=== PATIENT | male | born 1965 | race American Indian/Alaskan Native ===

== ENCOUNTER 2016-06-14 09:42 | Emergency (ER) | payer MEDICARE ==
--- NOTE | 2016-06-14 10:38 | Emergency Department Report ---
Stated Complaint: HIGH GLUCOSE LEVEL Time Seen by Provider: 06/14/16 10:34 - HPI History of Present Illness: Patient report elevated blood sugar this morning 388. He took 10 units of 70/30 , however glycemic level in the ED 401. He c/o headache - ROS Review of Systems: all other systems are unremarkable except for documentation in HPI - Exam Physical Exam: Gen: well developed and nourished, NAD Neuro: A&O times 3, GCS 15, no focal neuro deficits noted MSE screening note: Focused history and physical exam performed. Due to findings the following was ordered: glycemic and laboratory studies ordered ED Disposition for MSE Condition: Stable
[2016-06-14 11:01] LABS: Basophils % (Auto) 0.7 % (0.0-1.8); Eosinophils % (Auto) 1.7 % (0.0-4.3); Hematocrit 38.7 % (35.5-45.6); Hemoglobin 12.7 gm/dl (11.8-15.2); Mean Corpuscular HGB Conc 33 % (32-34); Mean Corpuscular Hemoglobin 28 pg (28-32); Mean Corpuscular Volume 85 fl (84-94); Platelet Count 263 K/mm3 (140-440); Red Blood Count 4.56 M/mm3 (3.65-5.03); Red Cell Distribution Width 15.6 % (13.2-15.2); White Blood Count 5.7 K/mm3 (4.5-11.0)
[2016-06-14 11:19] LABS: Alanine Aminotransferase 13 units/L (7-56); Albumin 4.3 g/dL (3.9-5); Albumin/Globulin Ratio 1.2 %; Alkaline Phosphatase 57 units/L (35-129); Anion Gap 17 mmol/L; B-Hydroxybutyrate 2.1 mg/dL (0.2-2.8); BUN/Creatinine Ratio 15.55; Bilirubin,Total 0.2 mg/dL (0.1-1.2); Blood Urea Nitrogen 14 mg/dL (9-20); Calcium 9.2 mg/dL (8.4-10.2); Carbon Dioxide 26 mmol/L (22-30); Chloride 95.4 mmol/L (98-107); Glucose 384 mg/dL (75-100); Potassium 4.7 mmol/L (3.6-5.0); Sodium 134 mmol/L (137-145)
[2016-06-14 12:21] LABS: Bilirubin,Urine NEG (Negative); Blood,Urine NEG (Negative); Ketones,Urine NEG (Negative); Leukocyte Esterase,Urine NEG (Negative); Mucus,Urine FEW /HPF; Nitrite,Urine NEG (Negative); Protein,Urine <15 mg/dL mg/dL (Negative); Urobilinogen,Urine < 2.0 mg/dL (<2.0)
[2016-06-14] MEDS ORDERED: NACL 0.9% 1000 ML 1,000 ML IV ONE (20:17)
[2016-06-14 23:40] VITALS: BP 156/91
--- NOTE | 2016-06-15 00:32 | Emergency Department Report ---
HPI - General Chief Complaint: Hyperglycemia Time Seen by Provider: 06/14/16 20:14 - HPI HPI: The patient is a 51-year-old male with a history of diabetes, who presents for evaluation of lightheadedness and elevated BS. The patient reports lightheadedness, on and off for the past 1 week, worsening over the past one day , exacerbated with standing and physical activity, severe when exacerbated, and improved with rest. The patient denies fever, headache, neck pain, paresthesias , focal motor weakness, blurry vision, ear pain, tinnitus, chest pain, hemoptysis, dyspnea, abdominal pain, confusion or altered mental status, or recent URI or diarrhea. ED Past Medical Hx - Past Medical History Previous Medical History?: Yes Hx Hypertension: Yes Hx Diabetes: Yes Hx Psychiatric Treatment: (shizophrenia, bipolar, depression, acohol and drug use) Additional medical history: ENLARGED PROSTATE - Surgical History Past Surgical History?: No - Social History Smoking Status: Current Every Day Smoker Substance Use Type: None, Cocaine, Marijuana, Prescribed - Medications Home Medications: Home Medications Medication Instructions Recorded Confirmed Last Taken Type Insulin NPH/Regular [NovoLIN 70/30] 10 unit SQ BID 02/23/16 02/23/16 Unknown History Acetaminophen [Acetaminophen TAB] 650 mg PO Q4H PRN #30 tablet 02/25/16 Unknown Rx Pantoprazole [Protonix] 40 mg PO QDAY #30 tablet 02/25/16 Unknown Rx Thiamine [Vitamin B-1] 100 mg PO QDAY #30 tablet 02/25/16 Unknown Rx ED Review of Systems ROS: Stated complaint: HIGH GLUCOSE LEVEL Other details as noted in HPI Constitutional: denies: fever; reports lightheadedness ENT: denies: throat or neck pain Respiratory: denies: cough, shortness of breath Cardiovascular: denies: chest pain Endocrine: denies unexplained weight loss or gain Gastrointestinal: denies: abdominal pain, nausea Genitourinary: denies: dysuria Musculoskeletal: denies: leg swelling Skin: denies: rash Neurological: denies: headache Hematological/Lymphatic: denies: easy bleeding or easy bruising Psych: denies sadness or hopelessness Comment: All other systems reviewed and negative Physical Exam - Physical Exam Vital Signs: Vital Signs 06/14/16 06/14/16 10:38 23:39 Temperature 97.6 F Pulse Rate 81 Respiratory 16 Rate Blood Pressure 144/89 Blood Pressure 156/91 [Left] O2 Sat by Pulse 100 Oximetry Physical Exam: General: well-nourished, well-developed, no acute distress Head: Normocephalic, atraumatic Eyes: normal sclera, EOMI, PERRL, no nystagmus ENT: Mucous membranes are pale and dry Neck: No neck stiffness, no cervical adenopathy Respiratory: Breath sounds equal bilaterally, no wheezing, rales, or rhonchi Cardio: S1 and S2 present, no murmurs, rubs, gallops, capillary refill is delayed Abdomen: Normoactive bowel sounds, soft abdomen, no rigidity, no guarding or rebound tenderness Chest WALL/Back: No tenderness to palpation of the chest wall, no CVA tenderness with percussion Musc: No pitting edema Skin: No rash Neuro: Alert oriented 3, no facial drooping, normal speech, no neuro deficits Psych: Normal affect ED Course Vital Signs 06/14/16 06/14/16 10:38 23:39 Temperature 97.6 F Pulse Rate 81 Respiratory 16 Rate Blood Pressure 144/89 Blood Pressure 156/91 [Left] O2 Sat by Pulse 100 Oximetry ED Medical Decision Making - Lab Data Result diagrams: 06/14/16 10:52 06/14/16 10:52 - Medical Decision Making The patient was seen and examined by myself. The patient is placed on a turner machine operator and continuous pulse ox. On initial evaluation, the patient was found to be in no distress. Evaluation orders were placed. IV access is established and the patient is given 1 L normal saline fluid bolus and IV insulin for treatment of hyperglycemia and dehydration. Lab results reveal hyperglycemia, and were negative for criteria meeting DKA. The patient was reevaluated and reported that their symptoms were markedly improved. The patient's blood sugar has decreased as well. The patient is stable for discharge with outpatient follow-up. The patient is given follow-up and return instructions. The patient expressed understanding and agreed with the plan. The patient is discharged in stable condition. Critical care attestation.: If time is entered above; I have spent that time in minutes in the direct care of this critically ill patient, excluding procedure time. ED Disposition Clinical Impression: Hyperglycemia due to type 1 diabetes mellitus, Dehydration Disposition: DISCHARGED TO HOME OR SELFCARE Is pt being admited?: No Does the pt Need Aspirin: No Condition: Stable Instructions: Diabetes Mellitus Type 2 in Adults (ED) Referrals: STANISLAW VALLEJO JR, MD [Primary Care Provider] - 3-5 Days Time of Disposition: 22:36
== END 2016-06-15 00:34 | disposition home or self-care (01) ==
LOC: ED 09:42
DX: E10.65 Type 1 diabetes mellitus with hyperglycemia (principal); E86.0 Dehydration; I10 Essential (primary) hypertension; F31.9 Bipolar disorder, unspecified; F20.9 Schizophrenia, unspecified; F17.200 Nicotine dependence, unspecified, uncomplicated; F14.10 Cocaine abuse, uncomplicated; F12.10 Cannabis abuse, uncomplicated
CPT/HCPCS: 36415; 80053; 81001; 82010; 82962; 85025; 96361; 96374; 99284; J7030; J1815